=== PATIENT | female | born 1975 | race Two or more races ===

== ENCOUNTER 2023-01-16 05:23 | Day surgery (SDC) | payer OTHER ==
[~2023-01-16] VITALS: Ht 157.5 cm; Wt 61.2 kg
[~2023-01-16 05:23] MED LIST: SYNTHROID100 MCG PO
[2023-01-16] MEDS ORDERED: MORGIDOX100 MG PO (09:50)
[2023-01-16] MEDS ORDERED: IBU600 MG PO (09:55)
== END 2023-01-16 15:30 | disposition home or self-care (01) ==
LOC: CIR.AMB 05:23
PROVIDERS: ATTEND Obstetrics & Gynecology
DX: N92.1 Excessive and frequent menstruation with irregular cycle (principal); N84.0 Polyp of corpus uteri; Z20.822 Contact with and (suspected) exposure to COVID-19; E11.9 Type 2 diabetes mellitus without complications; E03.9 Hypothyroidism, unspecified; Z79.84 Long term (current) use of oral hypoglycemic drugs

== ENCOUNTER 2025-08-25 07:00 | Day surgery (SDC) | payer OTHER ==
[2025-08-17 12:19] VITALS: BP 127/78
[2025-08-17 12:23] LABS: BASO % 1.1 % (0.1-1.2); EOS # 0.09 (0.04-0.54); EOS % 1.3 % (0.7-7.0); LYMPH # 1.71 (1.18-3.74); LYMPH % 24.3 % (19.3-53.1); MEAN PLATELET VOLUME 9.80 fl (9.4-12.4); MONO # 0.47 (0.24-0.82); MONO % 6.7 % (4.7-12.5); NEUT # 4.67 (1.56-6.13); NEUT % 66.5 % (34.0-71.1); RED CELL DISTRIBUTION WIDTH 12.6 % (11.6-14.4)
[2025-08-17 12:30] LABS: URINE APPEARANCE Clear; URINE BILIRRUBIN Negative (NEGATIVE); URINE BLOOD Negative; URINE COLOR Yellow; URINE GLUCOSE Negative (NEGATIVE); URINE KETONE Negative (NEGATIVE); URINE LEUKOCYTE Negative; URINE NITRATE Negative; URINE PROTEIN Negative (NEGATIVE); URINE UROBILINOGEN 0.2 E.U./dl
[2025-08-17 12:35] LABS: URINE EPITHELIAL CELLS 33.9 uL (0.0-38.8); URINE RBC 11.1 uL (0.0-20.8); URINE WBC 15.3 uL (0.0-23.2)
[2025-08-17 12:37] LABS: URINE CAST 0.00 uL (0.0-1.40)
[2025-08-17 12:40] LABS: INR 1.01
[2025-08-17 13:01] LABS: ALT/SGPT 28.0 U/L (12-78); AST/SGOT 16.0 U/L (15-37); BILIRUBIN TOTAL 0.5 mg/dL (0.3-1.2); BUN CREA RATIO 9.0 (7.0-25.0); CREATININE SERUM 0.75 mg/dL (0.55-1.02); GFR 81.79; GLOBULINA 3.3 G/DL (2.4-3.5); GLUCOSE FASTING 96.0 mg/dL (65-100); OSMOLALITY SERUM 281.0 MOSM/KG (275-295)
[~2025-08-25] VITALS: Ht 160 cm; Wt 63.5 kg
[~2025-08-25 07:00] MED LIST changes: +EZALLOR SPRINKLE5 MG PO; +IBU600 MG PO; +MORGIDOX100 MG PO
[2025-08-25] MEDS ORDERED: CEFAZOLIN SODIUM 1,000 MG VIAL ONE (07:25)
[2025-08-25] MEDS ORDERED: POVIDONE-IODINE 118 ML BOTT TOP ONE (09:27)
[2025-08-25] MEDS ORDERED: DOXYCYCLINE HY100 M2 PO (11:13)
[2025-08-25] MEDS ORDERED: IBU600 MG PO (11:14)
== END 2025-08-25 16:35 | disposition home or self-care (01) ==
LOC: CIR.AMB 07:00
PROVIDERS: ATTEND Obstetrics & Gynecology
DX: D25.0 Submucous leiomyoma of uterus (principal); N84.0 Polyp of corpus uteri